=== PATIENT | female | born 1985 | race Hispanic/Latino ===

== ENCOUNTER 2020-07-25 05:49 | Emergency (ER) | payer OTHER ==
[~2020-07-25] VITALS: Ht 157.5 cm; Wt 86.6 kg
[2020-07-25 08:09] VITALS: BP 122/65
== END 2020-07-25 07:35 | disposition home or self-care (01) ==
LOC: FSED 06:50
DX: O20.0 Threatened abortion (principal)
CPT/HCPCS: 76801; 85025; 99283